=== PATIENT | female | born 1950 | race Caucasian/White ===

== ENCOUNTER → 2017-06-26 | Outpatient (CLI) | payer MEDICARE ==
[~2017-06-26] MED LIST: BENTYL20 MG PO; HYDROCHLOROTH12.5 MG; K-DUR 20 MEQ T20 MEQ; LOTREL 10-40 M1 EACH; NORCO 5-325 TA1 EACH PO
== END ==
LOC: M.ULTRA 07:11
DX: R10.13 Epigastric pain (principal); Z90.49 Acquired absence of other specified parts of digestive tract